=== PATIENT | male | born 1980 | race Hispanic/Latino ===

== ENCOUNTER 2018-08-30 17:26 | Emergency (ER) | payer OTHER ==
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
[2018-08-30] MEDS ORDERED: IBUPROFEN PO ONE ×2 (17:35→17:38)
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
[2018-08-30] MEDS ORDERED: DILAUDID ONE (18:11)
[2018-08-30] MEDS ORDERED: DILAUDID IV ONE (18:20)
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
[2018-08-30 20:43] VITALS: BP 117/61
== END 2018-08-30 19:50 | disposition home or self-care (01) ==
LOC: ED 17:26
DX: S13.9XXA Sprain of joints and ligaments of unspecified parts of neck, initial encounter (principal); S33.5XXA Sprain of ligaments of lumbar spine, initial encounter; S09.90XA Unspecified injury of head, initial encounter; G44.319 Acute post-traumatic headache, not intractable; F17.200 Nicotine dependence, unspecified, uncomplicated; V89.2XXA Person injured in unspecified motor-vehicle accident, traffic, initial encounter; Y93.89 Activity, other specified; Y92.410 Unspecified street and highway as the place of occurrence of the external cause; Y99.8 Other external cause status
CPT/HCPCS: 70450; 72125; 72128; 72131; 96374; 99284; J1170